=== PATIENT | male | born 1965 | race Two or more races ===

== ENCOUNTER 2024-05-16 19:52 | Emergency (ER) | payer OTHER ==
[~2024-05-16] VITALS: Ht 175.3 cm; Wt 81.6 kg
[~2024-05-16 19:52] MED LIST: AMBIEN CR12.5 MG/BL; CATAFLAM50 MG; CELEBREX100 MG; CIPRO500 MG PO; LEVSIN/SL0.125 MG PO; NEURONTIN600 MG; PAXIL20 MG
[2024-05-16 21:07] LABS: PH,URINE 6.5 (5.0-8.0); URINE APPEARANCE Clear; URINE BILIRRUBIN Negative (NEGATIVE); URINE BLOOD Trace; URINE COLOR Yellow; URINE GLUCOSE Negative (NEGATIVE); URINE LEUKOCYTE Negative; URINE NITRATE Negative; URINE PROTEIN Negative (NEGATIVE); URINE UROBILINOGEN 0.2 E.U./dl
[2024-05-16 21:08] LABS: URINE RBC 9.3 uL (0.0-20.8); URINE WBC 4.4 uL (0.0-23.2)
[2024-05-16 21:12] LABS: URINE BACTERIA > 9821.5 uL (0.0-1933); URINE EPITHELIAL CELLS 0.3 uL (0.0-38.8)
== END 2024-05-16 22:45 | disposition home or self-care (01) ==
LOC: ER 19:53
PROVIDERS: Emergency Medicine
DX: R33.8 Other retention of urine (principal)